=== PATIENT | male | born 1970 | race Caucasian/White ===

== ENCOUNTER 2025-05-11 23:21 | Inpatient (IN) ==
[2025-05-11] MEDS: SODIUM CHLORIDE 0.9% 1,000 ML IV ONE (23:52)
[2025-05-11] MEDS: ACETAMINOPHEN 1,000 MG/100 ML VIAL IV STA (23:52)
[2025-05-11] MEDS: KETOROLAC 30 MG/ML VIAL IV STA (23:52)
[2025-05-11 23:54] LABS: Hematocrit (blood only) 45.2 % (42.0-52.0); Hemoglobin 15.7 g/dl (14.0-18.0); Immature Granulocytes # (auto) 0.01 K/uL (0.01-0.20); Immature Granulocytes % (auto) 0.1 %; Mean Corpuscular Hemoglobin 29.3 pg (25.0-34.0); Mean Corpuscular Volume 84.5 fL (80.0-100.0); Platelet Count 209 K/uL (130-400); RDW Standard Deviation 37.9 fL (36.4-46.3); Red Blood Count 5.35 M/uL (4.70-6.10); White Blood Count 9.19 K/ul (4.8-10.8)
[2025-05-11] MEDS: TAMSULOSIN HCL 0.4 MG CAP PO ONE (23:58)
--- NOTE | 2025-05-12 00:09 | Emergency Department Note ---
History of Present Illness General Chief complaint: Kidney Stone Stated complaint: KIDNEY STONE Time Seen by Provider: 05/11/25 23:32 History of Present Illness Maximum Pain Intensity: 10 This is a 54-year-old male presenting to the emergency department for evaluation of 07/18 flank pain. The patient was seen and evaluated yesterday in this department where he had a 6 mm proximal left ureteral calculi on CT scan. Patient was offered admission versus discharge home at that visit, and he elected to go home. The patient has been taking Tylenol and Motrin without improvement of symptoms. He states the pain is worse now than his initial pain. He is nauseated without vomiting. No lower tenderness. No fever. Home Medications Medication Instructions Recorded Confirmed Type loratadine 10 mg disintegrating 10 mg PO QAM 03/26/19 05/11/25 History tablet (Claritin RediTabs) indomethacin 25 mg capsule 25 mg PO DAILY PRN NEEDED PER PT 10/19/22 05/11/25 History albuterol sulfate 90 mcg/actuation 2 puff inhalation Q6H PRN 07/16/24 05/11/25 Rx aerosol inhaler SOB/BEFORE EXERCISE #8.5 grams meloxicam 7.5 mg tablet 7.5 mg PO DAILY PRN Pain #90 tabs 07/16/24 05/11/25 Rx blood-glucose sensor (Dexcom G7 #3 ea 03/04/25 Rx Sensor device) etodolac 200 mg capsule 200 mg PO Q12H PRN pain #14 caps 05/10/25 05/11/25 Rx ondansetron 4 mg disintegrating 4 mg PO Q8H PRN nausea and 05/10/25 05/11/25 Rx tablet vomiting #30 tabs tamsulosin 0.4 mg capsule (Flomax) 0.4 mg PO DAILY #14 caps 05/10/25 05/11/25 Rx tirzepatide 12.5 mg/0.5 mL 12.5 mg subcut WK 05/10/25 05/11/25 History subcutaneous pen injector Allergies Allergy/AdvReac Type Severity Reaction Status Date / Time Sulfa (Sulfonamide Allergy Severe THROAT Verified 05/11/25 23:56 Antibiotics) SWELLS Past Med/Surg History Problem List (Updated 05/12/25 @ 06:28 by Colin Genao PA-C) Hydronephrosis, left (Acute) Left ureteral calculus (Acute) Kidney stone (Acute) Non-healing skin lesion Erectile dysfunction Cellulitis Squamous cell skin cancer Basal cell carcinoma Peyronie's disease Calcium nephrolithiasis History of Guillain-Howells syndrome Right shoulder pain Impingement of right shoulder DM2 (diabetes mellitus, type 2) Encounter for cosmetic procedure Changing skin lesion Asthma well controlled Medical History Hyperlipidemia Kidney stones hx - no surgery needed. 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 doing well currently. history of following with neurology but since discharged. Surgical History History of biopsy shave biopsy right upper lip History of colonoscopy H/O partial thyroidectomy benign History of wisdom tooth extraction Family History Mother Breast cancer Aunt Diabetes Uncle Diabetes Father Lung cancer Myocardial infarction Prostate cancer Denies family history of Ovarian cancer Colorectal cancer Stroke Social History Smoking Status: Never smoker Second Hand Exposure: No; Do You Dip or Chew Tobacco: No; Hx Alcohol Use: Yes Alcohol type: wine and hard liquor Alcohol Intake Frequency: 2-4 x/Month Hx Substance Use: No Preferred Language: Croatian Communication Ability: Effective Visual Impairment: Limited Hearing Ability: Normal Rod Hanger Required: No Beliefs That Will Affect Care: None marital status: Current Living Situation: Spouse and Family current occupational status: employed current occupation: [employer] How many Children do You have: 2 Feels Safe at Home: Yes Childhood Exposure to Second-Hand Smoke: Yes Diet: regular caffeine: Yes Dental Care, Regularly: Yes Physical Activity Frequency: 1-2 Times per Week Seatbelt Use: always Sunscreen Use: Yes Do you think of yourself as: straight/heterosexual Assistive Devices: Contacts Review of Systems A total of 10 systems reviewed and were otherwise negative Physical Exam Vital Signs Vital Signs - 24 hr 05/11/25 23:21 05/11/25 23:26 05/11/25 23:56 Temperature 36.4 C L Temperature Source Oral Pulse Rate 76 66 Pulse Rate [Apical] Respiratory Rate 20 Respiratory Effort / Characteristics Non-Labored Non-Labored Spontaneous Respiratory Depth Normal Normal Respiratory Pattern Regular Blood Pressure 160/103 H Blood Pressure [Right Arm] Blood Pressure Mean 122 Blood Pressure Mean [Right Arm] Pulse Oximetry 98 Oxygen Delivery Method Room Air Sepsis Recent Fever Within 48 Hours No Sepsis New/Unexplained Change in Mental Status No Sepsis Action Taken by Nursing No Action Required 05/12/25 00:03 05/12/25 00:30 05/12/25 02:09 Temperature Temperature Source Pulse Rate Pulse Rate [Apical] 80 81 75 Respiratory Rate 16 16 16 Respiratory Effort / Characteristics Respiratory Depth Respiratory Pattern Blood Pressure Blood Pressure [Right Arm] 159/101 H 132/79 128/77 Blood Pressure Mean Blood Pressure Mean [Right Arm] 120 96 94 Pulse Oximetry 95 92 95 Oxygen Delivery Method Room Air Room Air Room Air Sepsis Recent Fever Within 48 Hours Sepsis New/Unexplained Change in Mental Status Sepsis Action Taken by Nursing 05/12/25 03:00 05/12/25 03:42 05/12/25 03:46 Temperature Temperature Source Pulse Rate 74 Pulse Rate [Apical] 73 77 Respiratory Rate 16 16 Respiratory Effort / Characteristics Respiratory Depth Respiratory Pattern Blood Pressure Blood Pressure [Right Arm] 132/85 140/91 Blood Pressure Mean Blood Pressure Mean [Right Arm] 100 107 Pulse Oximetry 94 95 Oxygen Delivery Method Room Air Room Air Sepsis Recent Fever Within 48 Hours Sepsis New/Unexplained Change in Mental Status Sepsis Action Taken by Nursing VITALS: Vitals are noted on the nurse's note and reviewed by myself. Vital signs stable. GENERAL: Well-developed, well-nourished, white male, who is in no acute distress and resting comfortably. Patient is cooperative with the examination. HEAD: Normocephalic atraumatic. HEART: Regular rate and rhythm without murmurs gallops or rubs. LUNGS: Clear to auscultation bilaterally without wheezes, rales or rhonchi. No retractions or accessory muscle use. ABDOMEN: Positive normal bowel sounds x 4. Soft, nontender, without masses or organomegaly. No guarding or rebound tenderness. MUSCULOSKELETAL: No muscle atrophy, erythema, or edema noted. Full range of motion in all extremities. No tenderness to palpation. NEURO: Patient was alert and oriented to person place and time. CN II through XII grossly intact. Course Administered Medications Hydromorphone HCl (Hydromorphone Inj 0.5 Mg/0.5 Ml Syr) 0.5 mg IV Q3H PRN PRN Reason: Severe Pain (Scale 7, 8, 9,10) Stop: 05/26/25 05:51 Last Admin: 05/12/25 06:11 Dose: 0.5 mg Documented By: OSCAR Sodium Chloride (Nss) 1,000 mls @ 80 mls/hr IV .[id number] CHAIM Stop: 05/12/25 18:21 Last Admin: 05/12/25 06:08 Dose: 80 mls/hr Documented By: OSCAR Discontinued Medications Sodium Chloride (Nss) 1,000 mls @ 999 mls/hr IV .Q1H1M ONE Stop: 05/12/25 00:44 Last Infusion: 05/12/25 00:54 Dose: Infused Documented By: Admin: 05/11/25 23:52 Dose: 999 mls/hr Documented By: AN Acetaminophen (Ofirmev) 1,000 mg in 100 mls @ 400 mls/hr IV NOW STA Stop: 05/11/25 23:58 Last Infusion: 05/12/25 00:15 Dose: Infused Documented By: Admin: 05/11/25 23:52 Dose: 400 mls/hr Documented By: AN Sodium Chloride (Nss) 1,000 mls @ 999 mls/hr IV .Q1H1M ONE Stop: 05/12/25 02:07 Last Infusion: 05/12/25 02:41 Dose: Infused Documented By: Admin: 05/12/25 01:30 Dose: 999 mls/hr Documented By: AN Ceftriaxone Sodium (Rocephin) 2,000 mg in 50 mls @ 100 mls/hr IV NOW STA Stop: 05/12/25 03:16 Last Infusion: 05/12/25 03:31 Dose: Infused Documented By: Admin: 05/12/25 02:59 Dose: 100 mls/hr Documented By: AN Ketorolac Tromethamine (Ketorolac 30 Mg/Ml Vial) 30 mg IV NOW STA Stop: 05/11/25 23:45 Last Admin: 05/11/25 23:52 Dose: 30 mg Documented By: AN Morphine Sulfate (Morphine Sulfate 4 Mg/Ml 1 Ml Carp\Vial) 4 mg IV Q30M PRN PRN Reason: Pain Stop: 05/25/25 23:43 Last Admin: 05/12/25 03:43 Dose: 4 mg Documented By: AN Tamsulosin HCl (Tamsulosin Hcl 0.4 Mg Cap) 0.4 mg PO NOW ONE Stop: 05/11/25 23:45 Last Admin: 05/11/25 23:58 Dose: Not Given Documented By: AN Medical Decision Making Differential Diagnosis Differential diagnosis: Etiologies such as shingles, pyelonephritis/UTI, renal colic, appendicitis, diverticulitis, mesenteric ischemia, torsion, aortic pathology, infections, inflammatory bowel disease, bowel obstruction, PUD, biliary pathology, as well as others were entertained. Laboratory Data 05/11/25 23:44 05/11/25 23:45 Lab Results 05/11/25 05/11/25 05/12/25 Range/Units 23:44 23:45 02:05 WBC 9.19 (4.8-10.8) K/ul RBC 5.35 (4.70-6.10) M/uL Hgb 15.7 (14.0-18.0) g/dl Hct 45.2 (42.0-52.0) % MCV 84.5 (80.0-100.0) fL MCH 29.3 (25.0-34.0) pg MCHC 34.7 (32.0-36.0) g/dL RDW Std Deviation 37.9 (36.4-46.3) fL RDW Coeff of Gemma 12.5 (11.5-14.5) % Plt Count 209 (130-400) K/uL MPV 9.9 (9.4-12.4) fL Immature Gran % (Auto) 0.1 % Neut % (Auto) 57.0 % Lymph % (Auto) 31.0 % [place] % (Auto) 8.9 % Eos % (Auto) 2.6 % Baso % (Auto) 0.4 % Neut # (Auto) 5.23 (1.40-6.50) K/uL Lymph # (Auto) 2.85 (1.20-3.40) K/uL [place] # (Auto) 0.82 H (0.11-0.59) K/uL Eos # (Auto) 0.24 (0.00-0.50) K/uL Baso # (Auto) 0.04 (0.00-0.20) K/uL Immature Gran # (Auto) 0.01 (0.01-0.20) K/uL Sodium 141 (136-145) mmol/L Potassium 4.4 (3.5-5.1) mmol/L Chloride 108 H (98-107) mmol/L Carbon Dioxide 27 (21-32) mmol/L Anion Gap 6 (3-11) BUN 18 (6-23) mg/dl Creatinine 1.35 (0.6-1.4) mg/dl Est Cr Clr Drug Dosing 79.5 ml/min eGFR 62.39 BUN/Creatinine Ratio 13.3 (10-20) Glucose 118 H (70-99(Fasting)) mg/dl Calcium 9.3 (8.6-10.3) mg/dl Total Bilirubin 1.2 H (0.2-1.0) mg/dl AST 15 (13-39) U/L ALT 21 (7-52) U/L Alkaline Phosphatase 91 (34-104) U/L Total Protein 7.1 (6.0-8.3) gm/dl Albumin 3.9 (3.4-5.0) gm/dl Globulin 3.2 (2.5-4.0) gm/dl Albumin/Globulin Ratio 1.2 (0.9-2) Urine Color Yellow Urine Appearance Clear (Clear) Urine pH 5.5 (4.5-7.5) Ur Specific [place] 1.025 (1.000-1.030) Urine Protein Trace H (Negative) Urine Glucose (UA) Negative (Negative) Urine Ketones Trace H (Negative) Urine Blood 2+ H (Negative) Urine Nitrite Negative (Negative) Urine Bilirubin Negative (Negative) Urine Urobilinogen Negative (Negative) Ur Leukocyte Esterase 2+ H (Negative) Urine WBC (Auto) 21-50 H (0-5) /hpf Urine RBC (Auto) 11-20 H (0-2) /hpf U Hyaline Cast (Auto) 0-2 (0-2) /lpf U Epithel Cells (Auto) 3-5 H (0-2) /hpf Urine Bacteria (Auto) None Seen (None Seen) Urine Comment MDM Narrative Physical exam and history were performed. Nursing notes, EMR, and Medication List were personally reviewed. No social concerns were identified as barriers to patients care. History was provided by the Patient and who was at bedside. Patient appears to have known left-sided kidney stone. Patient reportedly is not doing well at home and rates his pain a 10/10. IV access was established and labs were obtained. Patient was hydrated here in the ER and given IV Tylenol, IV Toradol, and IV morphine. He was ordered Flomax, but could not take this orally, and it was not administered. Patient's blood work is as above and was reviewed. He does not have a significantly elevated white blood cell count, gross anemia, bandemia, or significant electrolyte imbalance. Transaminases not diagnostic. Glucose is 118. Urine with blood and esterase. He seems to have increasing whites in the urine when compared to yesterday, and I will start him on a dose of IV Rocephin. Escalation of care was considered, and felt to be necessary. He has failed outpatient care. Case was discussed with the on-call hospitalist team who agreed to evaluate the patient here in the ER. Please see their dictation for further patient course, plan, disposition. The chart was completed utilizing Edgeware Speech Voice Recognition Software. Grammatical errors, random word insertions, pronoun errors, and incomplete sentences are an occasional consequence of this system due to software limitations, ambient noise, and hardware issues. Any formal questions or concerns about the content, text, or information contained within the body of this dictation should be directly addressed to the provider for clarification. Impression & Plan Left ureteral calculus, Hydronephrosis, left Discharge Plan Visit Data Chief Complaint: Kidney Stone Stated Complaint: KIDNEY STONE ED Provider: Bryan Hale ED Midlevel Provider: Colin Genao Discharge Problem: Left ureteral calculus, Hydronephrosis, left Patient Disposition: Admitted As Inpatient Condition: Fair Discharge Instructions Interventions: ED Discharge Assessment Last Done: 05/12/25 05:33
[2025-05-12 00:11] LABS: Alanine Aminotransferase 21.0 U/L (7-52); Albumin Globulin Ratio 1.2 (0.9-2); Alkaline Phosphatase 91.0 U/L (34-104); Anion Gap 6.0 (3-11); Bilirubin,Total 1.2 mg/dl (0.2-1.0); Blood Urea Nitrogen 18.0 mg/dl (6-23); Calcium 9.3 mg/dl (8.6-10.3); Carbon Dioxide 27.0 mmol/L (21-32); Chloride 108.0 mmol/L (98-107); Creatinine Clr Calc Pharmacy 79.5 ml/min; Globulin 3.2 gm/dl (2.5-4.0); Glucose 118.0 mg/dl (70-99(Fasting)); Potassium 4.4 mmol/L (3.5-5.1); Sodium 141.0 mmol/L (136-145); Total Protein 7.1 gm/dl (6.0-8.3)
[2025-05-12] MEDS: SODIUM CHLORIDE 0.9% 1,000 ML IV ONE (01:30)
[2025-05-12 02:43] LABS: Appearance Urine Clear (Clear); Bacteria Urine Automated None Seen (None Seen); Cast Urine Automated 0-2 /lpf (0-2); Glucose Urine UA Negative (Negative); WBC Urine Automated 21-50 /hpf (0-5)
[2025-05-12] MEDS: cefTRIAXone SODIUM 2,000 MG/50 ML BAG IV STA (02:59)
--- NOTE | 2025-05-12 03:30 | History & Physical Report ---
Date of Service May 12, 2025 Assessment & Plan (1) Left ureteral calculus: (2) Hydronephrosis, left: (3) DM2 (diabetes mellitus, type 2): (4) Asthma: Plan The patient is a 54-year-old male with past medical history including cellulitis, squamous cell skin cancer, basal cell skin cancer, Peyronie's disease, history of Guillain-Arellano syndrome, diabetes mellitus type 2, and asthma. He was initially seen at [facility] yesterday, due to severe left flank pain, was diagnosed with a 6 mm left ureteral stone with hydro-, and elected to attempt to return home. With worsening of his pain since that time, he presents to the ED for reassessment, and for admission for IV treatment. In the emergency department patient received ceftriaxone 2 g IV, morphine 4 mg IV, normal saline 1 L IV x 2, Toradol 30 mg IV, Tylenol 1 g IV, and tamsulosin 0.4 mg p.o. daily. 6 mm left ureteral calculus/left hydro- NPO Follow urine culture and sensitivity Tamsulosin 0.4 mg p.o. daily Ceftriaxone 2 g IV daily Acetaminophen 1 g IV every 8 hours as needed for mild pain or fever Patient has received 2 L normal saline bolus while in the ED NSS at 80 mL/h x 1 L Zofran 4 mg IV every 6 hours as needed Pantoprazole 40 mg IV daily Dilaudid 0.25 mg IV every 3 hours as needed for moderate pain Dilaudid 0.5 mg IV every 3 hours as needed for severe pain Consult urology Asthma- DuoNebs every 2 hours as needed Diabetes mellitus- Garry Slime Placed on Accu-Cheks with NovoLog SSI History of Present Illness Chief Complaint: The patient was initially evaluated in the emergency department yesterday, due to severe left flank pain. He was found to have a 6 mm proximal left ureteral calculus on CT scan with hydro. He was offered admission at that time versus discharge to home on pain medications, and he elected to go home. He has been taking Tylenol and Motrin at home without significant improvement in symptoms. He states his pain is worse now than his initial pain. He has associated nausea without vomiting. He has presented to the [facility] hospitalist service for further evaluation and treatment. Primary Care Provider: Canelo Alysha, DO The patient is a 54-year-old male with past medical history including cellulitis, squamous cell skin cancer, basal cell skin cancer, Peyronie's disease, history of Guillain-Arellano syndrome, diabetes mellitus type 2, and asthma. He was initially seen at [facility] yesterday, due to severe left flank pain, was diagnosed with a 6 mm left ureteral stone with hydro-, and elected to attempt to return home. With worsening of his pain since that time, he presents to the ED for reassessment, and for admission for IV treatment. In the emergency department patient received ceftriaxone 2 g IV, morphine 4 mg IV, normal saline 1 L IV x 2, Toradol 30 mg IV, Tylenol 1 g IV, and tamsulosin 0.4 mg p.o. daily. Allergies Allergy/AdvReac Type Severity Reaction Status Date / Time Sulfa (Sulfonamide Allergy Severe THROAT Verified 05/11/25 23:56 Antibiotics) SWELLS Home Medications Medication Instructions Recorded Confirmed Type loratadine 10 mg disintegrating 10 mg PO QAM 03/26/19 05/11/25 History tablet (Claritin RediTabs) indomethacin 25 mg capsule 25 mg PO DAILY PRN NEEDED PER PT 10/19/22 05/11/25 History albuterol sulfate 90 mcg/actuation 2 puff inhalation Q6H PRN 07/16/24 05/11/25 Rx aerosol inhaler SOB/BEFORE EXERCISE #8.5 grams meloxicam 7.5 mg tablet 7.5 mg PO DAILY PRN Pain #90 tabs 07/16/24 05/11/25 Rx blood-glucose sensor (Dexcom G7 #3 ea 03/04/25 Rx Sensor device) etodolac 200 mg capsule 200 mg PO Q12H PRN pain #14 caps 05/10/25 05/11/25 Rx ondansetron 4 mg disintegrating 4 mg PO Q8H PRN nausea and 05/10/25 05/11/25 Rx tablet vomiting #30 tabs tamsulosin 0.4 mg capsule (Flomax) 0.4 mg PO DAILY #14 caps 05/10/25 05/11/25 Rx tirzepatide 12.5 mg/0.5 mL 12.5 mg subcut WK 05/10/25 05/11/25 History subcutaneous pen injector Past Med/Surg History Problem List (Updated 05/12/25 @ 03:45 by Everett Mcgill MD) Hydronephrosis, left Left ureteral calculus Kidney stone (Acute) Non-healing skin lesion Erectile dysfunction Cellulitis Squamous cell skin cancer Basal cell carcinoma Peyronie's disease 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 Diabetes mellitus, type 2 Off mounjaro since 06/02/24, back on October 2024 Gout occasionally HLA B27 positive Guillain-Mercedita syndrome diagnosed 10 years ago -- right first finger and thumb is still currently numb. doing well currently. history of following with neurology but since discharged. Surgical History History of biopsy shave biopsy right upper lip History of colonoscopy H/O partial thyroidectomy benign History of wisdom tooth extraction Family History Mother Breast cancer Aunt Diabetes Uncle Diabetes Father Lung cancer Myocardial infarction Prostate cancer Denies family history of Ovarian cancer Colorectal cancer Stroke Social History Smoking Status: Never smoker Second Hand Exposure: No; Do You Dip or Chew Tobacco: No; Hx Alcohol Use: Yes Alcohol type: wine and hard liquor Alcohol Intake Frequency: 2-4 x/Month Hx Substance Use: No Preferred Language: Puerto Rican Communication Ability: Effective Visual Impairment: Limited Hearing Ability: Normal Director Of Food And Nutrition Required: No Beliefs That Will Affect Care: None marital status: Current Living Situation: Spouse and Family current occupational status: employed current occupation: [employer] How many Children do You have: 2 Feels Safe at Home: Yes Childhood Exposure to Second-Hand Smoke: Yes Diet: regular caffeine: Yes Dental Care, Regularly: Yes Physical Activity Frequency: 1-2 Times per Week Seatbelt Use: always Sunscreen Use: Yes Do you think of yourself as: straight/heterosexual Assistive Devices: Contacts Review of Systems Review of Systems: The patient denies chest pain, palpitations, shortness of breath, dyspnea on exertion, cough, lower extremity swelling, sore throat, fevers, chills, sweats, vomiting, diarrhea , constipation, blood in urine or stool, dysuria, urinary frequency or urgency, lightheadedness, dizziness, memory loss, loss of consciousness, rash, abnormal bruising or bleeding, imbalance, focal or generalized weakness, numbness or tingling in arms or legs, generalized arthralgias or myalgias, neck pain, or night sweats. The review of systems is otherwise negative other than for that already noted above, and at least 10 systems have been reviewed. Physical Exam Physical Exam: The patient is awake, alert and oriented 3, well developed and well nourished, normocephalic and atraumatic, lying in bed and in no acute distress. HEENT--PERRL, EOMI, mucous membranes and oropharynx mildly dry. Neck--supple. No JVD. No bruits. Thyroid normal, trachea midline, no adenopathy. Heart--normal S1 and S2. No murmurs, rubs or gallops. Lungs--clear bilaterally, no respiratory distress, no accessory muscle use. Abdomen--normal bowel sounds and soft. Nontender. Nondistended, no hernias or masses, no organomegaly. Extremities--no cyanosis or clubbing. No edema. There are good distal pulses b/l. Dermatologic--normal skin turgor, normal color, no abnormal lymph nodes, no rash. Neurologic--cranial nerves II through XII grossly intact. Rheumatologic--normal range of motion. Psychiatric--normal affect. Results & Data Results & Data Vital Signs (Past 12 Hours) Vital Signs Temp Pulse Pulse Resp BP BP Pulse Ox 05/12/25 03:00 73 16 132/85 94 05/12/25 02:09 75 16 128/77 95 05/12/25 00:30 81 16 132/79 92 05/12/25 00:03 80 16 159/101 H 95 05/11/25 23:56 66 05/11/25 23:26 36.4 C L 76 20 160/103 H 98 O2 Del Method 05/12/25 03:00 Room Air 05/12/25 02:09 Room Air 05/12/25 00:30 Room Air 05/12/25 00:03 Room Air 05/11/25 23:56 05/11/25 23:26 Room Air Laboratory Results Laboratory Results WBC 9.19 K/ul (4.8-10.8) 05/11/25 23:44 RBC 5.35 M/uL (4.70-6.10) 05/11/25 23:44 Hgb 15.7 g/dl (14.0-18.0) 05/11/25 23:44 Hct 45.2 % (42.0-52.0) 05/11/25 23:44 MCV 84.5 fL (80.0-100.0) 05/11/25 23:44 MCH 29.3 pg (25.0-34.0) 05/11/25 23:44 MCHC 34.7 g/dL (32.0-36.0) 05/11/25 23:44 RDW Std Deviation 37.9 fL (36.4-46.3) 05/11/25 23:44 RDW Coeff of Gemma 12.5 % (11.5-14.5) 05/11/25 23:44 Plt Count 209 K/uL (130-400) 05/11/25 23:44 MPV 9.9 fL (9.4-12.4) 05/11/25 23:44 Immature Gran % (Auto) 0.1 % 05/11/25 23:44 Neut % (Auto) 57.0 % 05/11/25 23:44 Lymph % (Auto) 31.0 % 05/11/25 23:44 [place] % (Auto) 8.9 % 05/11/25 23:44 Eos % (Auto) 2.6 % 05/11/25 23:44 Baso % (Auto) 0.4 % 05/11/25 23:44 Neut # (Auto) 5.23 K/uL (1.40-6.50) 05/11/25 23:44 Lymph # (Auto) 2.85 K/uL (1.20-3.40) 05/11/25 23:44 [place] # (Auto) 0.82 K/uL (0.11-0.59) H 05/11/25 23:44 Eos # (Auto) 0.24 K/uL (0.00-0.50) 05/11/25 23:44 Baso # (Auto) 0.04 K/uL (0.00-0.20) 05/11/25 23:44 Immature Gran # (Auto) 0.01 K/uL (0.01-0.20) 05/11/25 23:44 Sodium 141 mmol/L (136-145) 05/11/25 23:45 Potassium 4.4 mmol/L (3.5-5.1) 05/11/25 23:45 Chloride 108 mmol/L (98-107) H 05/11/25 23:45 Carbon Dioxide 27 mmol/L (21-32) 05/11/25 23:45 Anion Gap 6 (3-11) 05/11/25 23:45 BUN 18 mg/dl (6-23) 05/11/25 23:45 Creatinine 1.35 mg/dl (0.6-1.4) 05/11/25 23:45 Est Cr Clr Drug Dosing 79.5 ml/min 05/11/25 23:45 eGFR 62.39 05/11/25 23:45 BUN/Creatinine Ratio 13.3 (10-20) 05/11/25 23:45 Glucose 118 mg/dl (70-99(Fasting)) H 05/11/25 23:45 Calcium 9.3 mg/dl (8.6-10.3) 05/11/25 23:45 Total Bilirubin 1.2 mg/dl (0.2-1.0) H 05/11/25 23:45 AST 15 U/L (13-39) 05/11/25 23:45 ALT 21 U/L (7-52) 05/11/25 23:45 Alkaline Phosphatase 91 U/L (34-104) 05/11/25 23:45 Total Protein 7.1 gm/dl (6.0-8.3) 05/11/25 23:45 Albumin 3.9 gm/dl (3.4-5.0) 05/11/25 23:45 Globulin 3.2 gm/dl (2.5-4.0) 05/11/25 23:45 Albumin/Globulin Ratio 1.2 (0.9-2) 05/11/25 23:45 Urine Color Yellow 05/12/25 02:05 Urine Appearance Clear (Clear) 05/12/25 02:05 Urine pH 5.5 (4.5-7.5) 05/12/25 02:05 Ur Specific [place] 1.025 (1.000-1.030) 05/12/25 02:05 Urine Protein Trace (Negative) H 05/12/25 02:05 Urine Glucose (UA) Negative (Negative) 05/12/25 02:05 Urine Ketones Trace (Negative) H 05/12/25 02:05 Urine Blood 2+ (Negative) H 05/12/25 02:05 Urine Nitrite Negative (Negative) 05/12/25 02:05 Urine Bilirubin Negative (Negative) 05/12/25 02:05 Urine Urobilinogen Negative (Negative) 05/12/25 02:05 Ur Leukocyte Esterase 2+ (Negative) H 05/12/25 02:05 Urine WBC (Auto) 21-50 /hpf (0-5) H 05/12/25 02:05 Urine RBC (Auto) 11-20 /hpf (0-2) H 05/12/25 02:05 U Hyaline Cast (Auto) 0-2 /lpf (0-2) 05/12/25 02:05 U Epithel Cells (Auto) 3-5 /hpf (0-2) H 05/12/25 02:05 Urine Bacteria (Auto) None Seen (None Seen) 05/12/25 02:05 Urine Comment 05/12/25 02:05 Code Status & VTE Plan Code Status Full code PG Care Time/CCT Total # of Minutes Spent Total Time Spent with Patient: Total time spent is greater than 50% in coordination of care (as documented) at patient's floor/unit and/or counseling patient: Coding Level of Care Code 91384 INT INP/OBS CARE 3/75MIN Diagnoses Left ureteral calculus N20.1 Hydronephrosis, left N13.30 DM2 (diabetes mellitus, type 2) E11.9 Asthma J45.909
[2025-05-12] MEDS ORDERED: GLUCAGON FOR INJ 1 MG VIAL SQ PRN ×2 (03:43→05:52)
[2025-05-12] MEDS ORDERED: GLUCOSE 10 TAB/TUBE PO PRN ×2 (03:43→05:52)
[2025-05-12] MEDS: MoRPHine SULFATE 4 MG/ML 1 ML CARP\\VIAL IV PRN (03:43)
[2025-05-12] MEDS ORDERED: CARBOHYDRATES FOR HYPOGLYCEMIA PO PRN ×2 (03:43→05:52)
[2025-05-12] MEDS ORDERED: GLUCOSE 40% GEL 15 GM TUBE PO PRN ×2 (03:43→05:52)
[2025-05-12] MEDS ORDERED: ONDANSETRON INJ 2 MG/ML 2 ML VIAL IV PRN (05:52)
[2025-05-12] MEDS ORDERED: DEXTROSE 50% 50 ML SYRINGE IV PRN (05:52)
[2025-05-12] MEDS ORDERED: ACETAMINOPHEN 1000 MG/100 ML IV IV PRN (05:52)
[2025-05-12] MEDS ORDERED: HYDROmorphone INJ 0.5 MG/0.5 ML SYR IV PRN (05:52)
[2025-05-12] MEDS ORDERED: ALBUT/IPRATROP 3MG/0.5MG NEB 3 ML VIAL NEB PRN (05:52)
[2025-05-12] MEDS ORDERED: ACETAMINOPHEN 325 MG TAB PO PRN (05:52)
[2025-05-12] MEDS: SODIUM CHLORIDE 0.9% 1,000 ML IV SCH (06:08)
[2025-05-12] MEDS: HYDROmorphone INJ 0.5 MG/0.5 ML SYR IV PRN (06:11)
[2025-05-12 08:02] LABS: Hemoglobin A1C 5.6 % (4.5-5.6)
[2025-05-12] MEDS: INSULIN ASPART PER UNIT CHARGE SC SCH (08:35)
[2025-05-12] MEDS: PANTOprazole 40 MG/10 ML SYR IV SCH (08:40)
[2025-05-12] MEDS: TAMSULOSIN HCL 0.4 MG CAP PO SCH (08:46)
--- NOTE | 2025-05-12 09:20 | Urology Consultation ---
Date of Consultation May 12, 2025 Assessment & Plan (1) Left ureteral calculus: (2) Hydronephrosis, left: Plan 54yo male admitted with intractable left-sided pain secondary to an obstructing 6 mm left ureteral stone We reviewed acute stone management with cystoscopy and stent placement. Ureteral stents were discussed as well as postoperative issues and pain management. He is aware a second procedure will be needed for stone treatment. Risks and benefits were discussed. Expected clinical course reviewed. All questions were answered. Will proceed to the OR today for cystoscopy, left retrograde pyelogram, left ureteral stent placement. Risk/benefits to be reviewed with patient by Dr. Badillo. Keep NPO. He is covered with scheduled IV ceftriaxone. Urology will follow, please call with any questions/concerns. Supervising Physician Co-Signing Physician Notes Plan to go to the OR for cystoscopy and left ureteral stent placement due to intractable pain History of Present Illness Attending Physician: Anibal Marie MD History of Present Illness 54 year old male with a past medical history including cellulitis, squamous cell skin cancer, basal cell skin cancer, Peyronie's disease, history of Guillain- Arellano syndrome, DM2, asthma who was initially seen at [facility] on 05/10 due to severe left flank pain and was diagnosed with a 6 mm left ureteral stone with hydronephrosis. Patient was stable and opted for outpatient management with trial of passage and therefore was discharged home. He returned to the ED on 05/11 due to severe flank pain and was admitted for pain management. In the ED he received IV fluids, ceftriaxone, Toradol, morphine, Tylenol, tamsulosin. Patient was seen at bedside today. He is awake and resting bed on arrival. No acute distress. Has been NPO. Denies any stone passage. Pain is currently well-controlled. He is afebrile and hemodynamically stable Labs show no leukocytosis and normal renal function Urinalysis with 2+ blood, 2+ LE, negative bacteria, negative nitrite Patient has a history of kidney stones with prior spontaneous passage. Allergies Allergy/AdvReac Type Severity Reaction Status Date / Time Sulfa (Sulfonamide Allergy Severe THROAT Verified 05/11/25 23:56 Antibiotics) SWELLS Home Medications Medication Instructions Recorded Confirmed Type loratadine 10 mg disintegrating 10 mg PO QAM 03/26/19 05/11/25 History tablet (Claritin RediTabs) indomethacin 25 mg capsule 25 mg PO DAILY PRN NEEDED PER PT 10/19/22 05/11/25 History albuterol sulfate 90 mcg/actuation 2 puff inhalation Q6H PRN 07/16/24 05/11/25 Rx aerosol inhaler SOB/BEFORE EXERCISE #8.5 grams meloxicam 7.5 mg tablet 7.5 mg PO DAILY PRN Pain #90 tabs 07/16/24 05/11/25 Rx blood-glucose sensor (Dexcom G7 #3 ea 03/04/25 Rx Sensor device) etodolac 200 mg capsule 200 mg PO Q12H PRN pain #14 caps 05/10/25 05/11/25 Rx ondansetron 4 mg disintegrating 4 mg PO Q8H PRN nausea and 05/10/25 05/11/25 Rx tablet vomiting #30 tabs tamsulosin 0.4 mg capsule (Flomax) 0.4 mg PO DAILY #14 caps 05/10/25 05/11/25 Rx tirzepatide 12.5 mg/0.5 mL 12.5 mg subcut WK 05/10/25 05/11/25 History subcutaneous pen injector Patient History Medical History Hyperlipidemia Kidney stones hx - no surgery needed. Diabetes mellitus, type 2 Off mounjaro since 06/02/24, back on October 2024 Gout occasionally HLA B27 positive Guillain-[place] syndrome diagnosed 10 years ago -- right first finger and thumb is still currently numb. doing well currently. history of following with neurology but since discharged. Surgical History History of biopsy shave biopsy right upper lip History of colonoscopy H/O partial thyroidectomy benign History of wisdom tooth extraction Family History Mother Breast cancer Aunt Diabetes Uncle Diabetes Father Lung cancer Myocardial infarction Prostate cancer Denies family history of Ovarian cancer Colorectal cancer Stroke Social History Smoking Status: Never smoker Second Hand Exposure: No; Do You Dip or Chew Tobacco: No; Tobacco Cessation Education Requested by Patient: No Hx Alcohol Use: No Hx Substance Use: No Preferred Language: Kiswahili Communication Ability: Effective Visual Impairment: Limited Hearing Ability: Normal Fur Dresser Required: No Beliefs That Will Affect Care: None marital status: Current Living Situation: Spouse current occupational status: employed current occupation: [employer] How many Children do You have: 2 Other Information That Helps Us Care for You: No Feels Safe at Home: Yes Safety Concerns: Feels Safe At This Time Childhood Exposure to Second-Hand Smoke: Yes Diet: regular caffeine: Yes Dental Care, Regularly: Yes Physical Activity Frequency: 1-2 Times per Week Seatbelt Use: always Sunscreen Use: Yes Do you think of yourself as: straight/heterosexual Assistive Devices: None Review of Systems Review of Systems: All systems reviewed & are unremarkable except as noted in HPI & below Physical Exam Constitutional: no acute distress Respiratory: no respiratory distress and no labored breathing Musculoskeletal: Head/Neck/Chest: normocephalic Skin: No visible rashes or lesions to exposed skin areas Neurologic: moves all extremities and awake Psychiatric: A+Ox3, euthymic affect Results & Data Vital Signs (Past 12 Hours) Vital Signs Temp Pulse Pulse Resp BP BP Pulse Ox 05/12/25 07:57 36.4 C L 79 18 113/72 96 05/12/25 06:00 36.4 C L 83 18 120/81 95 05/12/25 05:33 79 18 132/92 95 05/12/25 04:30 73 16 120/89 94 05/12/25 04:00 75 16 124/84 93 05/12/25 03:46 74 05/12/25 03:42 77 16 140/91 95 05/12/25 03:00 73 16 132/85 94 05/12/25 02:09 75 16 128/77 95 05/12/25 00:30 81 16 132/79 92 05/12/25 00:03 80 16 159/101 H 95 05/11/25 23:56 66 05/11/25 23:26 36.4 C L 76 20 160/103 H 98 O2 Del Method 05/12/25 07:57 Room Air 05/12/25 06:00 Room Air 05/12/25 05:33 05/12/25 04:30 Room Air 05/12/25 04:00 Room Air 05/12/25 03:46 05/12/25 03:42 Room Air 05/12/25 03:00 Room Air 05/12/25 02:09 Room Air 05/12/25 00:30 Room Air 05/12/25 00:03 Room Air 05/11/25 23:56 05/11/25 23:26 Room Air PG Care Time/CCT Total # of Minutes Spent Total Time Spent with Patient: Total time spent is greater than 50% in coordination of care (as documented) at patient's floor/unit and/or counseling patient: Coding Level of Care Code 23398 IN/OBS CONSULT LVL 4,60M Diagnoses Left ureteral calculus N20.1 Hydronephrosis, left N13.30
[2025-05-12] MEDS: DEXTROSE 50% 50 ML SYRINGE IV PRN (12:55)
[2025-05-12] MEDS ORDERED: ONDANSETRON INJ 2 MG/ML 2 ML VIAL ONE (15:45)
[2025-05-12] MEDS ORDERED: LIDOCAINE 2% 2 ML VIAL/AMP(20MG/ML) INFIL ONE (15:45)
[2025-05-12] MEDS ORDERED: DEXAMETHASONE SOD INJ 4 MG/ML VIAL ONE (15:45)
[2025-05-12] MEDS ORDERED: MIDAZOLAM HCL 1 MG/ML 2ML VIAL ONE (15:45)
[2025-05-12] MEDS ORDERED: PROPOFOL IV EMULSION 10 MG/ML 20 ML VIAL IV ONE (15:45)
[2025-05-12] MEDS ORDERED: GLYCOPYRROLATE 0.2 MG/ML VIAL ONE (15:46)
--- NOTE | 2025-05-12 16:35 | Anesthesiology Consultation ---
Date of Service May 12, 2025 Assessment & Plan Chart Review Chart Review: Acceptable Risk for Surgery and Patient NOT seen in Pre Admission Testing Consults Requested none ASA ASA2 Proposed Anesthesia Anesthesia Type: MAC Risk / Benefits Reviewed With: PT / POA / Parent / Guardian, Accepts Plan and Informed Consent Obtained History Surgery Operation Date: 05/12/25 09:10 Proposed Procedures p Cystoscopy, Left Retrograde Pyelogram, Left Stent Placement - Ralph Badillo MD Height/Weight Height: 6 ft Weight: 109.7 kg Allergies Allergy/AdvReac Type Severity Reaction Status Date / Time Sulfa (Sulfonamide Allergy Severe THROAT Verified 05/11/25 23:56 Antibiotics) SWELLS Medications Home Medications Medication Instructions Recorded Confirmed Last Taken loratadine 10 mg disintegrating 10 mg PO QAM 03/26/19 05/11/25 05/11/25 tablet (Claritin RediTabs) indomethacin 25 mg capsule 25 mg PO DAILY PRN NEEDED PER PT 10/19/22 05/11/25 Unknown albuterol sulfate 90 mcg/actuation 2 puff inhalation Q6H PRN 07/16/24 05/11/25 Unknown aerosol inhaler SOB/BEFORE EXERCISE #8.5 grams meloxicam 7.5 mg tablet 7.5 mg PO DAILY PRN Pain #90 tabs 07/16/24 05/11/25 Unknown blood-glucose sensor (Dexcom G7 #3 ea 03/04/25 Unknown Sensor device) etodolac 200 mg capsule 200 mg PO Q12H PRN pain #14 caps 05/10/25 05/11/25 Unknown ondansetron 4 mg disintegrating 4 mg PO Q8H PRN nausea and 05/10/25 05/11/25 Unknown tablet vomiting #30 tabs tamsulosin 0.4 mg capsule (Flomax) 0.4 mg PO DAILY #14 caps 05/10/25 05/11/25 Unknown tirzepatide 12.5 mg/0.5 mL 12.5 mg subcut WK 05/10/25 05/11/25 05/11/25 subcutaneous pen injector Active Medications Generic Name Dose Route Start Last Admin Trade Name Freq PRN Reason Stop Dose Admin Dextrose 25 - 50 ml 05/12/25 03:43 05/12/25 12:55 Dextrose 50% 50 Ml Syringe IV 06/11/25 03:42 25 ml UD PRN Administration Hypoglycemia Protocol Protocol Hydromorphone HCl 0.5 mg 05/12/25 05:52 05/12/25 06:11 Hydromorphone Inj 0.5 Mg/0.5 Ml Syr IV 05/26/25 05:51 0.5 mg Q3H PRN Administration Severe Pain (Scale 7, 8, 9,10) Pantoprazole Sodium 40 mg in 10 mls @ 5 mls/min 05/12/25 09:00 05/12/25 08:40 Protonix IV 06/11/25 08:59 5 mls/min QAM CHAIM Administration Sodium Chloride 1,000 mls @ 80 mls/hr 05/12/25 05:52 05/12/25 16:05 Nss IV 05/12/25 18:21 0 mls/hr .[id number] CHAIM Infusion Insulin Aspart 0 units 05/12/25 07:30 05/12/25 12:52 Insulin Aspart Per Unit Charge SC 06/11/25 07:29 Not Given ACHS CHAIM Tamsulosin HCl 0.4 mg 05/12/25 09:00 05/12/25 08:46 Tamsulosin Hcl 0.4 Mg Cap PO 06/11/25 08:59 Not Given DAILY CHAIM NPO Date Last Intake of Fluids: 05/11/25 Time Last Intake of Fluids: 23:00 Date Last Intake of Solids: 05/11/25 Time Last Intake of Solids: 23:00 Past Medical History Medical History Hyperlipidemia Kidney stones hx - no surgery needed. Diabetes mellitus, type 2 Off mounjaro since 06/02/24, back on October 2024 Gout occasionally HLA B27 positive Guillain-[place] syndrome diagnosed 10 years ago -- right first finger and thumb is still currently numb. doing well currently. history of following with neurology but since discharged. Exercise / Class Metabolic Activity II 4-5 Yardwork/Stairs/Walk up hill Past Family History Family History Mother Breast cancer Aunt Diabetes Uncle Diabetes Father Lung cancer Myocardial infarction Prostate cancer Denies family history of Ovarian cancer Colorectal cancer Stroke Past Surgical History Surgical History History of biopsy shave biopsy right upper lip History of colonoscopy H/O partial thyroidectomy benign History of wisdom tooth extraction Past Anesthesia History No Hx of Anesthesia Complications and No Family Hx of Anesthesia Complications History of PONV No Hx of PONV and No Hx of Motion Sickness Social History Smoking Status: Never smoker Do You Dip or Chew Tobacco: No Hx Alcohol Use: No Alcohol type: wine and hard liquor Hx Substance Use: No Physical Exam Vital Signs Last Vital Signs Temp 36.5 C 05/12/25 16:05 Pulse 91 H 05/12/25 16:05 Resp 17 05/12/25 16:05 BP 158/93 H 05/12/25 16:05 Pulse Ox 97 05/12/25 16:05 O2 Del Method Room Air 05/12/25 16:05 ENMT Mouth: no dentition abnormality Thyromental Distance: > or= 3.5 Finger Breadths Mallampati Class: II Neck normal visual inspection Respiratory normal respiratory effort Auscultation: lungs clear to auscultation bilaterally Cardiovascular Rate/Rhythm: regular rate and regular rhythm Psychiatric Orientation: alert Testing Laboratory Results 05/11/25 23:44 05/11/25 23:45 Hemoglobin A1c 5.6 % (4.5-5.6) 05/12/25 04:38 Urine Color Yellow 05/12/25 02:05 Urine Appearance Clear (Clear) 05/12/25 02:05 Urine pH 5.5 (4.5-7.5) 05/12/25 02:05 Ur Specific [place] 1.025 (1.000-1.030) 05/12/25 02:05 Urine Protein Trace (Negative) H 05/12/25 02:05 Urine Glucose (UA) Negative (Negative) 05/12/25 02:05 Urine Ketones Trace (Negative) H 05/12/25 02:05 Urine Nitrite Negative (Negative) 05/12/25 02:05 Ur Leukocyte Esterase 2+ (Negative) H 05/12/25 02:05 Urine WBC (Auto) 21-50 /hpf (0-5) H 05/12/25 02:05 Urine RBC (Auto) 11-20 /hpf (0-2) H 05/12/25 02:05 U Hyaline Cast (Auto) 0-2 /lpf (0-2) 05/12/25 02:05 U Epithel Cells (Auto) 3-5 /hpf (0-2) H 05/12/25 02:05 Urine Bacteria (Auto) None Seen (None Seen) 05/12/25 02:05 05/12/25 05/12/25 05/12/25 16:13 13:13 12:50 POC Glucose 80 119 H 71 05/12/25 07:48 POC Glucose 80
--- NOTE | 2025-05-12 17:07 | Operative Report ---
PG Post Operative Report Pre & Post Diagnosis Operation Date: 05/12/25 09:10 Pre-Op Diagnosis: Left ureteral calculus, left hydronephrosis. Post-Op Diagnosis: Left ureteral calculus, left hydronephrosis. I identified the patient and participated in the time-out.: Yes Procedure Operation Date: 05/12/25 09:10 Actual Procedures p Cystoscopy, Left Retrograde Pyelogram with radiograph interpretation, Left Stent Placement(Left) - Ralph Badillo MD Surgeon Ralph Badillo MD Track Vehicle Repairer None Estimated Blood Loss 1 Findings See Below Mild left hydro, stent in appropriate position Specimens None Drains 6 American by 26 cm left ureteral stent Anesthesia Type MAC Complications none Indications 54-year-old male with a proximal left obstructing ureteral calculus and intractable pain Description of Procedure After informed consent was obtained, the patient was transported operative suite. MAC anesthesia was induced. The patient was placed in dorsal lithotomy position prepped and draped in a sterile fashion. They received preoperative ceftriaxone for antibiotic prophylaxis. An appropriate surgical timeout was performed. A 22 American rigid scope was inserted per urethra into the bladder. Cuevas cystoscopy revealed no stones or lesions. I turned my attention the left ureteral orifice and intubated this with a 5 American open-ended catheter. A left retrograde pyelogram was shot which showed mild left hydro. A sensor wire was advanced into the kidney and confirmed fluoroscopically. A 6 American by 26 cm left ureteral stent was deployed with a good proximal coil in the renal pelvis and a good distal coil noted in the bladder. These were confirmed fluoroscopically and under direct visualization, respectively. The bladder was emptied and the scope was removed. This concluded the end of the case. All counts were correct at the end of the case. I was present, scrubbed, and actively participated for the entirety of the procedure. I attest to the content of the Intraoperative Record and any orders documented therein. Any exceptions are noted below.
[2025-05-12] MEDS: DIATRIZOATE MEGLUMINE 30% 100ML VIAL INSTIL PRN (17:15)
[2025-05-13] MEDS: cefTRIAXone SODIUM 2,000 MG/50 ML BAG IV SCH (03:36)
[2025-05-13 06:47] LABS: Hematocrit (blood only) 42.9 % (42.0-52.0); Hemoglobin 15.1 g/dl (14.0-18.0); Immature Granulocytes # (auto) 0.02 K/uL (0.01-0.20); Immature Granulocytes % (auto) 0.3 %; Mean Corpuscular Hemoglobin 29.5 pg (25.0-34.0); Mean Corpuscular Volume 83.8 fL (80.0-100.0); Platelet Count 209 K/uL (130-400); RDW Standard Deviation 36.9 fL (36.4-46.3); Red Blood Count 5.12 M/uL (4.70-6.10); White Blood Count 7.29 K/ul (4.8-10.8)
[2025-05-13 07:14] LABS: Alanine Aminotransferase 16.0 U/L (7-52); Albumin Globulin Ratio 1.4 (0.9-2); Alkaline Phosphatase 59.0 U/L (34-104); Anion Gap 6.0 (3-11); Bilirubin,Total 1.0 mg/dl (0.2-1.0); Blood Urea Nitrogen 14.0 mg/dl (6-23); Calcium 8.8 mg/dl (8.6-10.3); Carbon Dioxide 26.0 mmol/L (21-32); Chloride 107.0 mmol/L (98-107); Creatinine Clr Calc Pharmacy 113.7 ml/min; Globulin 2.8 gm/dl (2.5-4.0); Glucose 166.0 mg/dl (70-99(Fasting)); Magnesium 1.9 mg/dl (1.7-2.4); Potassium 4.2 mmol/L (3.5-5.1); Sodium 139.0 mmol/L (136-145); Total Protein 6.6 gm/dl (6.0-8.3)
--- NOTE | 2025-05-13 07:25 | Fluoroscopy Report ---
INTRAOPERATIVE FLUOROSCOPIC IMAGES: CLINICAL HISTORY: Fluoroscopy time: 15 seconds Number of fluoroscopic images: 2 Ka,r: 6.64 mGy: FINDINGS: The first image demonstrates faint opacification of the left proximal ureter and left renal pelvis. The second film demonstrates the proximal aspect of a left ureteral stent. The proximal pigt ail is called with an upper pole calyx. IMPRESSION: Findings as described above. Placement of a left-sided nephroureteral stent. Electronically signed by: Mayito Lord M.D. 05/13/2025 7:24 AM
--- NOTE | 2025-05-13 07:36 | Urology Progress Note ---
Date of Service May 13, 2025 Assessment & Plan (1) Hydronephrosis, left: (2) Left ureteral calculus: Plan 54-year-old male with a left ureteral calculus and intractable pain his status post cystoscopy with left ureteral stent placement on 05/12/2025. Patient tolerating stent well and pain has improved Stable for discharge home from a urologic perspective Recommend stent colic regimen of Tylenol, ibuprofen, oxycodone for breakthrough, Flomax 0.4 mg and oxybutynin 5 mg 3 times daily as needed Message has already been sent to schedule outpatient follow-up Admission and Anticipated Discharge Date Admission Date: May 12, 2025 Subjective 54-year-old male with a left ureteral calculus and intractable pain his status post cystoscopy with left ureteral stent placement on 05/12/2025. Afebrile with stable vitals this morning labs today show white blood cell count of 7.2, hemoglobin of 15.1, creatinine of 0.95, down from 1.35. Urine culture finalized mixed sharri. He reports feeling much better today. Physical Exam Physical Exam: General: Alert and oriented, no acute distress HEENT: Normocephalic, mucous membranes moist Pulmonary: Nonlabored respirations Abdomen: Nondistended Extremities: Moves all 4 spontaneously Neuro: No gross deficits Skin: Warm, dry, no rashes noted Results & Data Vital Signs (Past 12 Hours) Vital Signs Temp Pulse Resp BP BP Pulse Ox O2 Del Method 05/13/25 04:16 36.6 C 82 18 136/89 96 Room Air 05/12/25 23:23 36.4 C L 81 18 117/73 96 Room Air 05/12/25 20:00 36.6 C 82 18 147/92 H 96 Room Air PG Care Time/CCT Total # of Minutes Spent Total Time Spent with Patient: Total time spent is greater than 50% in coordination of care (as documented) at patient's floor/unit and/or counseling patient: Coding Level of Care Code 04939 SUB INP/OBS CARE 2/35MIN Diagnoses Hydronephrosis, left N13.30 Left ureteral calculus N20.1
[2025-05-13 07:45] VITALS: RESP 16; O2SAT 94
[2025-05-13 11:17] VITALS: BP 138/87; PULSE 81; TEMP 97.9
--- NOTE | 2025-05-13 11:51 | Discharge Summary ---
Discharge Summary Date of Service May 13, 2025 Principal Dx & Hospital Course #1 = Principal Diagnosis (1) Left ureteral calculus: (2) Hydronephrosis, left: (3) DM2 (diabetes mellitus, type 2): (4) Asthma: Plan The patient is a 54-year-old male with past medical history including cellulitis, squamous cell skin cancer, basal cell skin cancer, Peyronie's disease, history of Guillain-Arellano syndrome, diabetes mellitus type 2, and asthma. He was initially seen at [facility] yesterday, due to severe left flank pain, was diagnosed with a 6 mm left ureteral stone with hydro-, and elected to attempt to return home. With worsening of his pain since that time, he presents to the ED for reassessment, and for admission for IV treatment. In the emergency department patient received ceftriaxone 2 g IV, morphine 4 mg IV, normal saline 1 L IV x 2, Toradol 30 mg IV, Tylenol 1 g IV, and tamsulosin 0.4 mg p.o. daily. 6 mm left ureteral calculus/left hydro- NPO Follow urine culture and sensitivity Tamsulosin 0.4 mg p.o. daily Ceftriaxone 2 g IV daily Acetaminophen 1 g IV every 8 hours as needed for mild pain or fever Patient has received 2 L normal saline bolus while in the ED NSS at 80 mL/h x 1 L Zofran 4 mg IV every 6 hours as needed Pantoprazole 40 mg IV daily Dilaudid 0.25 mg IV every 3 hours as needed for moderate pain Dilaudid 0.5 mg IV every 3 hours as needed for severe pain Consult urology Pt had cystoscopy with left ureteral stent placement Asthma- DuoNebs every 2 hours as needed Diabetes mellitus- Hold Mounjaro Placed on Accu-Cheks with NovoLog SSI Admission HPI Per Admitting Provider The patient is a 54-year-old male with past medical history including cellulitis, squamous cell skin cancer, basal cell skin cancer, Peyronie's disease, history of Guillain-Arellano syndrome, diabetes mellitus type 2, and asthma. He was initially seen at [facility] yesterday, due to severe left flank pain, was diagnosed with a 6 mm left ureteral stone with hydro-, and elected to attempt to return home. With worsening of his pain since that time, he presents to the ED for reassessment, and for admission for IV treatment. In the emergency department patient received ceftriaxone 2 g IV, morphine 4 mg IV, normal saline 1 L IV x 2, Toradol 30 mg IV, Tylenol 1 g IV, and tamsulosin 0.4 mg p.o. daily. Discharge Exam GENERAL APPEARANCE NAD, activity normal for age, well developed/ well nourished, no cyanosis, pallor, or diaphoresis. EYES lids/conjunctiva normal. EARS/NOSE/THROAT Mucous membranes moist, nares normal, lips/teeth normal uvula midline without oral pharyngeal erythema, exudate or swelling TMs normal bilaterally. No lymphangitis/lymphedema. HEAD/NECK normocephalic atraumatic, no facial trauma, neck is supple. RESPIRATORY respiratory effort normal, speaks in full sentences, no tripod position, no accessory muscle use. Lungs clear to auscultation without rhonchi, wheezes, rales CARDIAC Regular rate and rhythm, no edema. ABDOMINAL Soft, ND/NT. No evidence of fluid wave. No pulsatile masses on exam, rebound tenderness, Chow sign or pain over Mcburney's point. MUSCLES/EXTREMITIES No abnormal range of motion, no swelling. SKIN Warm, pink and dry. No rashes, dermatoses, petechiae or lesions. NEUROLOGICAL Speech is clear and appropriate. Normal level of consciousness. Gait and coordination are normal. 5/5 strength in all extremities. PSYCH Normal mood and affect. Judgement/competence is appropriate Discharge Plan Discharge Items Patient Disposition: Home - Self-Care Reason For Visit: LEFT URETERAL CALCULUS, LEFT HYDRO Discharge Diagnosis: left kidney stone Condition on Discharge: Fair Activity: Resume your previous activity Non-emergency contact: Primary Care Provider Call non-emergency contact if: you have any medication questions Follow-up/Referrals: Canelo Encarnacion DO [Primary Care Provider] - Diet: Regular and Carb Consistent or DM2 Addtl Attending Provider Instructions: Follow up with urology as instructed Pending Studies at Discharge: No Stand-Alone Forms: My [employer], Smoking Cessation Medications and DC Order Prescriptions: Continued (DME) Dexcom G7 Sensor Device See Rx Instructions .Route Qty: 3 2RF Rx Instructions: As directed albuterol sulfate 90 mcg/actuation HFA aerosol inhaler 2 puff INHALATION Q6H PRN (Reason: SOB/BEFORE EXERCISE) Qty: 8.5 6RF meloxicam 7.5 mg tablet 7.5 mg PO DAILY PRN (Reason: Pain) Qty: 90 1RF loratadine [Claritin RediTabs] 10 mg Tablet,Disintegrating 10 mg PO QAM indomethacin 25 mg capsule 25 mg PO DAILY PRN (Reason: NEEDED PER PT) tirzepatide 12.5 mg/0.5 mL pen injector 12.5 mg subcut WK Rx Instructions: SUNDAYS etodolac 200 mg capsule 200 mg PO Q12H PRN (Reason: pain) Qty: 14 0RF Rx Instructions: PER PT "WAS NOT READY AT PHARMACY". tamsulosin [Flomax] 0.4 mg capsule 0.4 mg PO DAILY Qty: 14 0RF Rx Instructions: PER PT "WAS NOT READY AT PHARMACY". ondansetron 4 mg tablet,disintegrating 4 mg PO Q8H PRN (Reason: nausea and vomiting) Qty: 30 0RF Rx Instructions: PER PT "WAS NOT READY AT PHARMACY". Discharge Orders: Discharge Order (Routine); Ordered 05/13/25 Ordered By: Anibal Marie Admission Data Admit Date/Time: 05/12/25 03:48 Attending Provider: Anibal Marie Admit Provider: Everett Mcgill Primary Care Provider: Canelo Encarnacion Other Providers: Everett Mcgill; Rodríguez Jones Hospital Stay Data Consultations 05/12/25 03:26 ED Decision to Admit Stat 05/12/25 03:29 Consult Urology Routine Procedures Performed Operation Date: 05/12/25 09:10 Actual Procedures p Cystoscopy, Left Retrograde Pyelogram, Left Stent Placement(Left) - Ralph Badillo MD Diagnostic Imagining Performed 05/12/25 FL retrograde includes kub Routine Pending Results Patient Have Any Pending Studies at Discharge: No Discharge Instructions Given to Patient (Per Discharging Provider) Follow up with urology as instructed Total Time Total Time Spent Total Time Spent (In Minutes): 50 Coding Level of Care Code 41700 INP/OBS DISCH >30 MIN Diagnoses Left ureteral calculus N20.1 Hydronephrosis, left N13.30 DM2 (diabetes mellitus, type 2) E11.9 Asthma J45.909
== END 2025-05-13 13:29 | disposition home or self-care (01) | DRG 661 ==
LOC: ED 23:21 → SUATTDRO 05-12 03:48 → 3N 05-12 03:48